=== PATIENT | male | born 1945 | race Two or more races ===

== ENCOUNTER 2024-12-09 19:21 | Inpatient (IN) | payer MEDICARE, BC ==
[~2024-12-09] VITALS: Ht 190.5 cm; Wt 73.9 kg
[2024-12-09 20:52] LABS: BASOPHILS % (AUTO) 0.5 % (0.0-2.0); EOSINOPHILS # (AUTO) 0.1 K/uL (0.0-0.7); EOSINOPHILS % (AUTO) 1.1 % (0.0-6.0); HEMATOCRIT 36 % (39-51); HEMOGLOBIN 12.4 g/dL (13.5-17.5); LYMPHOCYTES # (AUTO) 0.6 K/uL (0.8-4.8); LYMPHOCYTES % (AUTO) 11.1 % (20.0-44.0); MEAN CORPUSCULAR HEMOGLOBIN 35 PG (26.0-33.0); MEAN CORPUSCULAR HGB CONC 34 g/dl (31.0-36.0); MEAN CORPUSCULAR VOLUME 101 fL (80-96); MONOCYTES # (AUTO) 0.5 K/uL (0.1-1.30); MONOCYTES % (AUTO) 8.9 % (2.0-12.0); NEUTROPHILS % (AUTO) 78.4 % (43.0-81.0); PLATELET COUNT (AUTO) 166 K/uL (150-450); RED BLOOD CELL COUNT(AUTO) 3.58 MIL/uL (4.5-6.0); RED CELL DISTRIBUTION WIDTH 13.9 % (11.5-15.0); WHITE BLOOD COUNT (AUTO) 5.1 K/uL (4.3-11.0)
[2024-12-09 21:07] LABS: ALANINE AMINOTRANSFERASE 29 U/L (12-78); ALBUMIN 3.3 g/dL (3.4-5.0); ALCOHOL, BLOOD < 3 mg/dL (0-10); ALKALINE PHOSPHATASE 83 U/L (46-116); ASPARTATE AMINOTRANSFERASE 18 U/L (15-37); BILIRUBIN,DIRECT 0.4 mg/dL (0.0-0.2); CALCIUM, SERUM 9.7 mg/dL (8.5-10.1); CARBON DIOXIDE 25 mmol/L (21-32); CHLORIDE 106 mmol/L (98-107); CREATININE 2.3 mg/dL (0.6-1.3); GLUCOSE 123 mg/dL (74-106); POTASSIUM 3.7 mmol/L (3.5-5.1); SODIUM SERUM 142 mmol/L (136-145); UREA NITROGEN, BLOOD 41 mg/dL (7-18)
[2024-12-09 21:09] LABS: ACETAMINOPHEN 0 ug/ml (10-30); SALICYLATE 1.3 mg/dL (2.8-20.0)
[2024-12-09] MEDS ORDERED: ZOLP5TAB2 PO (21:37)
[2024-12-09] MEDS ORDERED: PANT40TA49 PO (21:37)
[2024-12-09] MEDS ORDERED: ASPI-1169 PO (21:37)
[2024-12-09] MEDS ORDERED: DICL50TA9 PO (21:37)
[2024-12-09] MEDS ORDERED: CLOP75TA15 PO (21:37)
[2024-12-09] MEDS ORDERED: PREVAGEN PO (21:37)
[2024-12-09] MEDS ORDERED: LORA-259 PO (21:37)
[2024-12-09] MEDS ORDERED: PARO-64 PO (21:37)
[2024-12-09] MEDS ORDERED: ROSU20TA2 PO (21:37)
[2024-12-09] MEDS ORDERED: MULT-447 PO (21:37)
[2024-12-09] MEDS ORDERED: AMIO100T4 PO (21:37)
[2024-12-09 21:54] LABS: APPEARANCE,URINE SLIGHTLY CLOUDY (CLEAR); BILIRUBIN,URINE 1+ (NEGATIVE); BLOOD, URINE 3+ Ery/uL (NEGATIVE); COLOR,URINE YELLOW (YELLOW); KETONES,URINE TRACE mg/dL (NEGATIVE); LEUKOCYTE ESTERASE ,URINE 3+ (NEGATIVE); NITRITE, URINE NEGATIVE (NEGATIVE); PROTEIN,URINE 2+ mg/dl (NEGATIVE); UGLUCOSE NEGATIVE (NEGATIVE)
[2024-12-09 22:10] LABS: AMPHETAMINE, URINE NEGATIVE (NEGATIVE); BARBITURATE, URINE NEGATIVE (NEGATIVE); BENZODIAZEPINE, URINE NEGATIVE (NEGATIVE); CANNABINOID, URINE NEGATIVE (NEGATIVE); COCCAINE, URINE NEGATIVE (NEGATIVE); OPIATE, URINE NEGATIVE (NEGATIVE); PHENCYCLIDINE SCREEN,URINE NEGATIVE (NEGATIVE)
[2024-12-09 22:15] LABS: ADD URINE CULTURE YES; BACTERIA,URINE Many /HPF (None Seen)
[2024-12-09 22:16] LABS: RBC,URINE 21-50 /HPF (0-2); SQUAMOUS EPITHELIAL CELL,UR None Seen /HPF (None Seen); WBC,URINE 51-80 /HPF (0-3)
[2024-12-10] MEDS ORDERED: TEMAZEPAM 7.5 MG CAPSULE PO PRN (02:00)
[2024-12-10] MEDS ORDERED: MAGNESIUM HYDROXIDE 30 ML UDC PO PRN (02:00)
[2024-12-10] MEDS ORDERED: ACETAMINOPHEN 325 MG TABLET PO PRN (02:00)
[2024-12-10] MEDS ORDERED: MAG HYDROX/AL HYDROX/SIMETH 30 ML UDC PO PRN (02:00)
[2024-12-10] MEDS: BLOOD SUGAR DIAGNOSTIC 1 EACH STRIP IN ONE (02:24)
[2024-12-10] MEDS: clonazePAM 0.5 MG TABLET PO PRN (03:03)
[2024-12-10 03:16] VITALS: BP 134/70; TEMP 98.3; O2SAT 98
[2024-12-10 08:00] VITALS: BP 119/50; TEMP 97.9; O2SAT 97
[2024-12-10 08:15] LABS: ALBUMIN 3.1 g/dL (3.4-5.0); BILIRUBIN,TOTAL 0.8 mg/dL (0.2-1.0); CALCIUM, SERUM 9.6 mg/dL (8.5-10.1); CREATININE 1.6 mg/dL (0.6-1.3); POTASSIUM 4.5 mmol/L (3.5-5.1); TOTAL PROTEIN, SERUM 6.6 g/dL (6.4-8.2)
[2024-12-10] MEDS: DICLOFENAC SODIUM 25 MG TABLET.DR PO SCH (09:00)
[2024-12-10] MEDS: CLOPIDOGREL BISULFATE 75 MG TABLET PO SCH (09:00)
[2024-12-10] MEDS: AMIODARONE HCL 200 MG TABLET PO SCH (09:00)
[2024-12-10] MEDS: PAROXETINE HCL 20 MG TABLET PO SCH (09:00)
[2024-12-10] MEDS: MULTIVIT W/MINERALS 1 TAB TABLET PO SCH (09:00)
[2024-12-10] MEDS: ASPIRIN 81 MG TAB.CHEW PO SCH (09:00)
[2024-12-10] MEDS: risperiDONE 1 MG TABLET PO SCH (09:00)
[2024-12-10] MEDS: PANTOPRAZOLE 40 MG TABLET.DR PO SCH (09:00)
[2024-12-10] MEDS ORDERED: NA P133E RC (09:58)
[2024-12-10] MEDS ORDERED: BISA10SU11 RC (09:58)
[2024-12-10] MEDS ORDERED: MAGN400O6 PO (09:58)
[2024-12-10] MEDS ORDERED: ACET325T53 PO (09:58)
[2024-12-10] MEDS ORDERED: TRAM50TA2 PO (09:58)
[2024-12-10] MEDS ORDERED: DICL100G34 TP (09:58)
[2024-12-10] MEDS: CEPHALEXIN MONOHYDRATE 500 MG CAPSULE PO SCH (10:30)
[2024-12-10 16:00] VITALS: BP 127/77; TEMP 98.7; O2SAT 98
[2024-12-10 20:54] VITALS: BP 115/42; TEMP 97.9; O2SAT 98
[2024-12-10] MEDS: ATORVASTATIN 40 MG TABLET PO SCH (21:33)
[2024-12-11 07:04] LABS: BASOPHILS % (AUTO) 0.7 % (0.0-2.0); EOSINOPHILS # (AUTO) 0.1 K/uL (0.0-0.7); HEMATOCRIT 33 % (39-51); HEMOGLOBIN 11.7 g/dL (13.5-17.5); LYMPHOCYTES # (AUTO) 0.9 K/uL (0.8-4.8); LYMPHOCYTES % (AUTO) 22.5 % (20.0-44.0); MEAN CORPUSCULAR HEMOGLOBIN 36 PG (26.0-33.0); MEAN CORPUSCULAR HGB CONC 36 g/dl (31.0-36.0); MEAN CORPUSCULAR VOLUME 101 fL (80-96); MONOCYTES # (AUTO) 0.4 K/uL (0.1-1.30); MONOCYTES % (AUTO) 9.6 % (2.0-12.0); NEUTROPHILS # (AUTO) 2.6 K/uL (1.8-8.9); NEUTROPHILS % (AUTO) 64.2 % (43.0-81.0); PLATELET COUNT (AUTO) 163 K/uL (150-450); RED BLOOD CELL COUNT(AUTO) 3.28 MIL/uL (4.5-6.0); RED CELL DISTRIBUTION WIDTH 14.1 % (11.5-15.0)
[2024-12-11 07:32] LABS: MAGNESIUM 2.3 mg/dL (1.8-2.4); PHOSPHORUS 3.5 mg/dL (2.5-4.9)
[2024-12-11 08:00] VITALS: BP 116/62; TEMP 97.7; O2SAT 100
[2024-12-11 08:41] VITALS: BP 116/62
[2024-12-11] MEDS ORDERED: MAG30ORA PO (15:31)
[2024-12-11] MEDS ORDERED: RISP0.5T65 PO (15:31)
[2024-12-11] MEDS ORDERED: ATOR80TA PO (15:31)
[2024-12-12 12:12] LABS: PTH, INTACT 7 pg/mL (15-65)
== END 2024-12-11 12:00 | DRG 881 ==
LOC: ER 19:23 → GPS 12-10 01:00
PROVIDERS: ADMIT Nurse Practitioner Psychiatric/Mental Health; ATTEND Nurse Practitioner Family
DX: F32.9 Major depressive disorder, single episode, unspecified (principal); N18.9 Chronic kidney disease, unspecified; N17.0 Acute kidney failure with tubular necrosis; M86.8X7 Other osteomyelitis, ankle and foot; F02.811 Dementia in other diseases classified elsewhere, unspecified severity, with agitation; F03.92 Unspecified dementia, unspecified severity, with psychotic disturbance; L03.116 Cellulitis of left lower limb; N39.0 Urinary tract infection, site not specified; F03.93 Unspecified dementia, unspecified severity, with mood disturbance; F29 Unspecified psychosis not due to a substance or known physiological condition; D64.9 Anemia, unspecified; E78.5 Hyperlipidemia, unspecified; I25.10 Atherosclerotic heart disease of native coronary artery without angina pectoris; I48.91 Unspecified atrial fibrillation; M20.40 Other hammer toe(s) (acquired), unspecified foot; Z86.73 Personal history of transient ischemic attack (TIA), and cerebral infarction without residual deficits; E83.9 Disorder of mineral metabolism, unspecified; S91.312A Laceration without foreign body, left foot, initial encounter; E11.22 Type 2 diabetes mellitus with diabetic chronic kidney disease; E11.51 Type 2 diabetes mellitus with diabetic peripheral angiopathy without gangrene; E11.69 Type 2 diabetes mellitus with other specified complication; I12.9 Hypertensive chronic kidney disease with stage 1 through stage 4 chronic kidney disease, or unspecified chronic kidney disease; J44.9 Chronic obstructive pulmonary disease, unspecified; K21.9 Gastro-esophageal reflux disease without esophagitis; N40.1 Benign prostatic hyperplasia with lower urinary tract symptoms; Z20.822 Contact with and (suspected) exposure to COVID-19; Z73.6 Limitation of activities due to disability; B96.89 Other specified bacterial agents as the cause of diseases classified elsewhere; Z66 Do not resuscitate; S91.115A Laceration without foreign body of left lesser toe(s) without damage to nail, initial encounter; X58.XXXA Exposure to other specified factors, initial encounter; Y92.9 Unspecified place or not applicable; Z79.02 Long term (current) use of antithrombotics/antiplatelets; Z79.82 Long term (current) use of aspirin; Z79.899 Other long term (current) drug therapy; H35.30 Unspecified macular degeneration; Z88.6 Allergy status to analgesic agent; Z88.5 Allergy status to narcotic agent; Z88.8 Allergy status to other drugs, medicaments and biological substances
CPT/HCPCS: 36415; 76770-TC; 80048-TC; 80053-TC; 80061-TC; 80076-TC; 81001; 82550-TC; 83735-TC; 83970; 84100-TC; 84155; 84165; 85025-TC; 87081-TC; 87086-TC; G0480

== ENCOUNTER 2024-12-11 13:47 | Inpatient (IN) | payer MEDICARE, BC ==
[~2024-12-11] VITALS: Ht 177.8 cm; Wt 67.1 kg
[~2024-12-11 13:47] MED LIST: ACET325T53 PO; AMIO100T4 PO; ASPI-1169 PO; BISA10SU11 RC; CLOP75TA15 PO; DICL100G34 TP; DICL50TA9 PO; LORA-259 PO; MAGN400O6 PO; MULT-447 PO; NA P133E RC; PANT40TA49 PO; PARO-64 PO; PREVAGEN PO; ROSU20TA2 PO; TRAM50TA2 PO; ZOLP5TAB2 PO
[2024-12-11] MEDS ORDERED: ONDANSETRON HCL/PF 4 MG/2 ML VIAL IVP PRN (15:00)
[2024-12-11] MEDS ORDERED: MAG HYDROX/AL HYDROX/SIMETH 30 ML UDC PO PRN (15:00)
[2024-12-11] MEDS ORDERED: MAGNESIUM HYDROXIDE 30 ML UDC PO PRN (15:00)
[2024-12-11] MEDS ORDERED: Z GUARD REMEDY 4 OZ OINT TP PRN (15:00)
[2024-12-11] MEDS ORDERED: ACETAMINOPHEN 325 MG TABLET PO PRN (15:00)
[2024-12-11] MEDS ORDERED: MAG30ORA PO (15:31)
[2024-12-11] MEDS ORDERED: RISP0.5T65 PO (15:31)
[2024-12-11] MEDS ORDERED: ATOR80TA PO (15:31)
[2024-12-11] MEDS ORDERED: OLANZAPINE 10 MG VIAL IM ONE (17:00)
[2024-12-11] MEDS: VANCOMYCIN 1.5 GM in IV D5W 500 ML IV ONE (17:33)
[2024-12-11 20:00] VITALS: BP 152/79; TEMP 97.8; O2SAT 97
[2024-12-11] MEDS: CEPHALEXIN MONOHYDRATE 500 MG CAPSULE PO SCH (20:24)
[2024-12-11] MEDS: ATORVASTATIN 40 MG TABLET PO SCH (21:32)
[2024-12-12 04:00] VITALS: BP 134/70; TEMP 98; O2SAT 97
[2024-12-12 07:52] LABS: CALCIUM, SERUM 9.3 mg/dL (8.5-10.1); MAGNESIUM 2.2 mg/dL (1.8-2.4); PHOSPHORUS 3.2 mg/dL (2.5-4.9); POTASSIUM 3.7 mmol/L (3.5-5.1)
[2024-12-12 08:41] LABS: BASOPHILS % (AUTO) 0.5 % (0.0-2.0); EOSINOPHILS # (AUTO) 0.1 K/uL (0.0-0.7); EOSINOPHILS % (AUTO) 1.2 % (0.0-6.0); HEMATOCRIT 36 % (39-51); HEMOGLOBIN 12.6 g/dL (13.5-17.5); LYMPHOCYTES # (AUTO) 0.8 K/uL (0.8-4.8); LYMPHOCYTES % (AUTO) 14.6 % (20.0-44.0); MEAN CORPUSCULAR HEMOGLOBIN 35 PG (26.0-33.0); MEAN CORPUSCULAR HGB CONC 35 g/dl (31.0-36.0); MEAN CORPUSCULAR VOLUME 100 fL (80-96); MONOCYTES # (AUTO) 0.3 K/uL (0.1-1.30); MONOCYTES % (AUTO) 6.3 % (2.0-12.0); NEUTROPHILS # (AUTO) 4.2 K/uL (1.8-8.9); NEUTROPHILS % (AUTO) 77.4 % (43.0-81.0); PLATELET COUNT (AUTO) 181 K/uL (150-450); RED BLOOD CELL COUNT(AUTO) 3.61 MIL/uL (4.5-6.0); RED CELL DISTRIBUTION WIDTH 13.7 % (11.5-15.0); WHITE BLOOD COUNT (AUTO) 5.4 K/uL (4.3-11.0)
[2024-12-12] MEDS: CLOPIDOGREL BISULFATE 75 MG TABLET PO SCH (08:55)
[2024-12-12] MEDS: PAROXETINE HCL 20 MG TABLET PO SCH (08:55)
[2024-12-12] MEDS: PANTOPRAZOLE 40 MG TABLET.DR PO SCH (08:55)
[2024-12-12] MEDS: risperiDONE 0.25 MG TABLET PO SCH (08:56)
[2024-12-12] MEDS: AMIODARONE HCL 200 MG TABLET PO SCH (08:58)
[2024-12-12] MEDS: ASPIRIN 81 MG TAB.CHEW PO SCH (08:58)
[2024-12-12] MEDS: CEFTRIAXONE 1 G in IV D5W 50 ML IV SCH (09:24)
[2024-12-12 10:00] VITALS: BP 128/70; TEMP 98; O2SAT 97
[2024-12-12 16:00] VITALS: BP 127/88; TEMP 98.2; O2SAT 98
[2024-12-12] MEDS: VANCOMYCIN 1 GM in IV D5W 250ml IV SCH (17:49)
[2024-12-13] VITALS: BP 119/67; TEMP 98.8; O2SAT 99
[2024-12-13 08:00] VITALS: BP 113/81; TEMP 97.7; O2SAT 98
[2024-12-13] MEDS: HYDROCODONE/APAP 5/325MG TABLET PO PRN (10:41)
[2024-12-13 16:00] VITALS: BP 135/66; TEMP 98.2; O2SAT 99
[2024-12-13] MEDS: VANCOMYCIN HCL 1.25 GM in IV D5W 250 ML IV SCH (18:47)
[2024-12-14] VITALS: BP 143/83; TEMP 98.6; O2SAT 98
[2024-12-14 05:58] LABS: EOSINOPHILS # (AUTO) 0.1 K/uL (0.0-0.7); EOSINOPHILS % (AUTO) 1.5 % (0.0-6.0); HEMATOCRIT 37 % (39-51); HEMOGLOBIN 12.8 g/dL (13.5-17.5); LYMPHOCYTES # (AUTO) 0.9 K/uL (0.8-4.8); LYMPHOCYTES % (AUTO) 18.7 % (20.0-44.0); MEAN CORPUSCULAR HEMOGLOBIN 35 PG (26.0-33.0); MEAN CORPUSCULAR HGB CONC 35 g/dl (31.0-36.0); MEAN CORPUSCULAR VOLUME 100 fL (80-96); MONOCYTES # (AUTO) 0.5 K/uL (0.1-1.30); MONOCYTES % (AUTO) 10.6 % (2.0-12.0); NEUTROPHILS # (AUTO) 3.1 K/uL (1.8-8.9); NEUTROPHILS % (AUTO) 68.2 % (43.0-81.0); PLATELET COUNT (AUTO) 196 K/uL (150-450); RED BLOOD CELL COUNT(AUTO) 3.68 MIL/uL (4.5-6.0); RED CELL DISTRIBUTION WIDTH 13.5 % (11.5-15.0); WHITE BLOOD COUNT (AUTO) 4.6 K/uL (4.3-11.0)
[2024-12-14 06:49] LABS: CALCIUM, SERUM 9.3 mg/dL (8.5-10.1); POTASSIUM 3.8 mmol/L (3.5-5.1)
[2024-12-14 08:00] VITALS: BP 136/59; TEMP 97.8; O2SAT 96
[2024-12-14 16:00] VITALS: BP 124/66; TEMP 97.7; O2SAT 95
[2024-12-14] MEDS: VANCOMYCIN 750 MG in IV D5W 250 ML IV SCH (19:23)
[2024-12-14 20:00] VITALS: BP 142/100; TEMP 99.3; O2SAT 98
[2024-12-15 04:00] VITALS: BP 100/68; TEMP 98.8; O2SAT 97
[2024-12-15 06:45] LABS: BASOPHILS # (AUTO) 0.1 K/uL (0.0-0.2); BASOPHILS % (AUTO) 0.8 % (0.0-2.0); EOSINOPHILS # (AUTO) 0.1 K/uL (0.0-0.7); EOSINOPHILS % (AUTO) 1.7 % (0.0-6.0); HEMATOCRIT 39 % (39-51); HEMOGLOBIN 13.1 g/dL (13.5-17.5); LYMPHOCYTES # (AUTO) 1.2 K/uL (0.8-4.8); LYMPHOCYTES % (AUTO) 18.8 % (20.0-44.0); MEAN CORPUSCULAR HEMOGLOBIN 33 PG (26.0-33.0); MEAN CORPUSCULAR HGB CONC 33 g/dl (31.0-36.0); MEAN CORPUSCULAR VOLUME 100 fL (80-96); MONOCYTES # (AUTO) 0.5 K/uL (0.1-1.30); MONOCYTES % (AUTO) 7.6 % (2.0-12.0); NEUTROPHILS # (AUTO) 4.4 K/uL (1.8-8.9); NEUTROPHILS % (AUTO) 71.1 % (43.0-81.0); PLATELET COUNT (AUTO) 212 K/uL (150-450); RED BLOOD CELL COUNT(AUTO) 3.93 MIL/uL (4.5-6.0); RED CELL DISTRIBUTION WIDTH 13.4 % (11.5-15.0); WHITE BLOOD COUNT (AUTO) 6.2 K/uL (4.3-11.0)
[2024-12-15 06:47] LABS: CALCIUM, SERUM 9.6 mg/dL (8.5-10.1)
[2024-12-15] MEDS ORDERED: VANC1PLA9 IV (08:47)
[2024-12-15] MEDS ORDERED: CEFT1FRO2 IV (08:47)
[2024-12-15 08:58] VITALS: BP 124/66; TEMP 97.7; O2SAT 95
[2024-12-15 16:13] VITALS: BP 116/66; TEMP 97.7; O2SAT 95
[2024-12-16] VITALS: BP 112/57; TEMP 97.9; O2SAT 98
[2024-12-16 08:00] VITALS: BP 106/65; TEMP 97.9; O2SAT 99
[2024-12-16 08:28] VITALS: BP 106/65
== END 2024-12-16 17:23 | DRG 540 ==
LOC: TELE1 13:47 → MEDSG1 14:20
PROVIDERS: ADMIT Nurse Practitioner Acute Care; ATTEND Internal Medicine
DX: M86.172 Other acute osteomyelitis, left ankle and foot (principal); E87.0 Hyperosmolality and hypernatremia; N13.6 Pyonephrosis; L03.116 Cellulitis of left lower limb; F03.92 Unspecified dementia, unspecified severity, with psychotic disturbance; F03.93 Unspecified dementia, unspecified severity, with mood disturbance; I48.20 Chronic atrial fibrillation, unspecified; N17.9 Acute kidney failure, unspecified; F29 Unspecified psychosis not due to a substance or known physiological condition; I73.9 Peripheral vascular disease, unspecified; N18.9 Chronic kidney disease, unspecified; I12.9 Hypertensive chronic kidney disease with stage 1 through stage 4 chronic kidney disease, or unspecified chronic kidney disease; Z66 Do not resuscitate; B96.89 Other specified bacterial agents as the cause of diseases classified elsewhere; N40.0 Benign prostatic hyperplasia without lower urinary tract symptoms; M89.8X9 Other specified disorders of bone, unspecified site; K21.9 Gastro-esophageal reflux disease without esophagitis; I25.10 Atherosclerotic heart disease of native coronary artery without angina pectoris; E78.5 Hyperlipidemia, unspecified; F32.9 Major depressive disorder, single episode, unspecified; J44.9 Chronic obstructive pulmonary disease, unspecified; Z86.73 Personal history of transient ischemic attack (TIA), and cerebral infarction without residual deficits; M20.42 Other hammer toe(s) (acquired), left foot; M20.41 Other hammer toe(s) (acquired), right foot; D53.9 Nutritional anemia, unspecified; S91.312A Laceration without foreign body, left foot, initial encounter; X58.XXXA Exposure to other specified factors, initial encounter; Y92.9 Unspecified place or not applicable; Z79.82 Long term (current) use of aspirin; Z79.899 Other long term (current) drug therapy; Z79.02 Long term (current) use of antithrombotics/antiplatelets; Z88.0 Allergy status to penicillin; Z88.5 Allergy status to narcotic agent; Z88.8 Allergy status to other drugs, medicaments and biological substances
CPT/HCPCS: 36415; 73630-TC; 76770-TC; 80048-TC; 80202-TC; 83735-TC; 84100-TC; 85025-TC; 97110-TC; 97116-TC; 97530-TC; A4223; C1752; G0378; J0696; J3370; J3371; J7040; J7050; J7060